=== PATIENT | female | born 1970 | race African-American/Black ===

== ENCOUNTER 2022-12-04 08:57 | Emergency (ER) | payer OTHER ==
[~2022-12-04] VITALS: Ht 167.6 cm; Wt 75.0 kg
[2022-12-04 09:10] VITALS: BP 126/98
[2022-12-04] MEDS ORDERED: MORPHINE SULFATE 4 MG/ML CPJ (NOT FOR IM USE) IV STA (09:17)
[2022-12-04] MEDS ORDERED: ONDANSETRON HCL 4MG/2ML INJ IV STA (09:17)
[2022-12-04] MEDS ORDERED: SODIUM CHLORIDE 0.9% 1,000 ML IV ONE (09:30)
== END 2022-12-04 18:27 | disposition left against medical advice (07) ==
LOC: ER 09:45
DX: R07.89 Other chest pain (principal); R00.0 Tachycardia, unspecified; J45.909 Unspecified asthma, uncomplicated; Z86.718 Personal history of other venous thrombosis and embolism; Z98.890 Other specified postprocedural states; Z90.49 Acquired absence of other specified parts of digestive tract; Z79.01 Long term (current) use of anticoagulants; Z88.1 Allergy status to other antibiotic agents; Z88.3 Allergy status to other anti-infective agents; Z91.041 Radiographic dye allergy status; Z88.0 Allergy status to penicillin
CPT/HCPCS: 71045; 93005; 99283; J7030